=== PATIENT | female | born 1995 ===

== ENCOUNTER → 2017-07-27 | Outpatient (CLI) | payer BC, OTHER ==
--- NOTE | 2017-07-27 08:44 | DIAGNOSTIC IMAGING REPORT ---
L ANKLE MIN 3 VIEWS CLINICAL HISTORY: Left ankle pain. Trauma. COMPARISON: None. DISCUSSION: No fractures or subluxations are visualized. The ankle mortise appears intact. IMPRESSION: No fractures or subluxations identified. Electronically signed by: Raj Manriquez M.D. 07/27/2017 8:43 AM Dictated Date/Time: 07/27/2017 8:43 AM
== END | disposition home or self-care (01) ==
LOC: C.RDSM 08:30
PROVIDERS: ATTEND Family Medicine
DX: M25.572 Pain in left ankle and joints of left foot (principal)